=== PATIENT | female | born 1940 | race Caucasian/White ===

== ENCOUNTER 2025-01-14 12:30 | Outpatient (REF) | payer MEDICARE, SELFPAY ==
--- OUTSIDE RECORDS SUMMARY | 2025-01-14 15:25 | XMS_ITS | Encounter Summary ---
Author Organization [facility] Address [address] [place] [address] Care Team Providers Care Deputy Administrator Name Role Phone Bere Delarosa MD Primary Care Provider [phone] Encounter Details Date Type Department Care Team ([facility] st Contact Info) Description 12/28/2024 Telephone Internal Medicine - [address] [place] [address] Fartun Vitale MA Social History Tobacco Use Types Packs/Day Years Used Date Smoking Tobacco: Former Cigarettes Q uit: 09/19/2006 Smokeless Tobacco: Never Interpersonal Safety Answer Date Record ed Physical Abuse 09/22/2024 Verbal Abuse 09/22/2024 Comments Unknown Sex and Gender Information Value Date Recorded Sex Assigned at Not on file Legal Sex Female 9:29 PM EST Gender Identity Not on file Sexual Orientation Not on file documented as of this encounter Progress Notes * Maryuri West RN - 01/09/2025 10:33 AM EDT Pt cb to scheduled TCM [facility] dc 01/05 for cellulitis and encephalopathy Needs referral for [facility] wound clinic TCM scheduled documented in this encounter Plan of Treatment Upcoming Encounters Date Type Department Care Team (Late st Contact Info) Description 01/17/2025 10:00 AM EDT Office Visit Internal Medicine - [place] [address] [phone] Bere Delarosa MD [address] [phone] 01/21/2025 8:15 AM EDT Office Visit Pulmonolgy - [place] [address] [phone] Ana Covington MD [address] [address] 02/01/2025 12:45 PM EDT Clinical Support [facility] [address] [place] [phone] documented as of this encounter Visit Diagnoses Not on filedocumented in this encounter Additional Health Concerns Infection Onset Date Last Indicated Resolved Time 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 Diff Rule-Out Infection 01/05/2025 01/05/2025 0 01/05/2025 7:55 AM EDT documented as of this encounter Care Teams Deputy Administrator Relationship Specialty Start Date End Date Bere Delarosa MD [address] [phone] PCP - General Internal Medicine 04/03/21 documented as of this encounter
--- OUTSIDE RECORDS SUMMARY | 2025-01-14 15:25 | XMS_ITS | Encounter Summary ---
Author Organization [facility] Address [address] [place] [address] Care Team Providers Care Security Assessor Name Role Phone Bere Delarosa MD Primary Care Provider [phone] Encounter Details Date Type Department Care Team ([facility] st Contact Info) Description 10/26/2024 Telephone [facility] [place] [address] [phone] Ana Covington MD [address] [id number] Social History Tobacco Use Types Packs/Day Years [...] as of this encounter Progress Notes * Radha De León MA - 10/26/2024 2:[address] hillary Jade patient scheduled 11/16/24 for this to be discussed as she canceled her 10/15 appt and needed afternoon appt due to transportation * Valorie French - 10/26/2024 12:18 PM EST Patient called stating that provider was to send in a BIPAP for patient. Patient was in Rehab for about a month and the provider from rehab spoke to Pulmo provider about patient needing a BIPAP. patient will like to know if this is getting send in today since it was to be send yesterday. Please advice documented in this encounter Plan of Treatment Upcoming Encounters Date Type Department Care Team (Late st Contact Info) Description 01/17/2025 10:00 AM EDT Office Visit Internal Medicine - [place] [address] [phone] Bere Delarosa MD [address] [place] [phone] 01/21/2025 8:15 AM EDT Office Visit Pulmonolgy - [place] [address] [phone] Ana Covington MD [address] [address] 02/01/2025 12:45 PM EDT Clinical Support [facility] [address] [place] [phone] documented as of this encounter Visit Diagnoses Not on filedocumented in this encounter Additional Health Concerns Infection Onset Date Last Indicated Resolved Time 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 Diff Rule-Out Infection 01/05/2025 01/05/2025 0 01/05/2025 7:55 AM EDT documented as of this encounter Care Teams Security Assessor Relationship Specialty Start Date End Date Bere Delarosa MD [address] [phone] PCP - General Internal Medicine 04/03/21 documented as of this encounter
--- OUTSIDE RECORDS SUMMARY | 2025-01-14 15:26 | XMS_ITS | Encounter Summary ---
Author Organization [facility] Address [address] [place] [address] Care Team Providers Care Tourist Escort Name Role Phone Bere Delarosa MD Primary Care Provider Reason for Visit * Reason Onset Date Comments faxed order 01/10/2025 [facility] Encounter Details Date Type Department Care Team (Late st Contact Info) Description 01/10/2025 Telephone Internal Medicine - [place] 175 [facility] [address] [place] [address] Mary Christopher MA faxed order ([facility]) Social History Tobacco Use Types Packs/Day Years [...] as of this encounter Progress Notes * Mary Christopher MA - 01/14/2025 2:49 PM EDT Faxed [phone] * Mary Christopher MA - 01/10/2025 1:48 PM EDT [employer] [facility] [employer]. Written order for wound care [id number] Placed in providers folder for signature. documented in this encounter Plan of Treatment Upcoming Encounters Date Type Department Care Team (Late st Contact Info) Description 01/17/2025 10:00 AM EDT Office Visit Internal Medicine [facility] [address] [phone] Bere Delarosa MD [address] [phone] 01/21/2025 8:15 AM EDT Office Visit Pulmonolgy - [place] [address] [phone] Ana Covington MD [address] [phone] 02/01/2025 12:45 PM EDT Clinical Support [facility] [address] [place] [phone] documented as of this encounter Visit Diagnoses Not on filedocumented in this encounter Additional Health Concerns Infection Onset Date Last Indicated Resolved Time 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
--- OUTSIDE RECORDS SUMMARY | 2025-01-14 15:26 | XMS_ITS | Encounter Summary ---
Author Organization [facility] Address [address] [place] [address] Care Team Providers Care Barkeeper Name Role Phone eBre Delarosa MD Primary Care Provider [phone] Reason for Visit * Reason Onset Date Comments Request For Order(s) 01/11/2025 [facility] Orders Discharge Summary Encounter Details Date Type Department Care Team (Late st Contact Info) Description 01/11/2025 Telephone Internal Medicine - [place] 175 [facility] [address] [place] [address] Fartun Vitale MA Request For Order(s) ([facility] Orders Discharge Summary/) Social History Tobacco Use Types Packs/Day Years [...] as of this encounter Progress Notes * Fartun Vitale MA - 01/14/2025 10:29 AM EDT Scanned into chart and faxed to [facility] [id number] * Fartun Vitale MA - 01/11/2025 7:05 AM EDT [facility] Orders Discharge Summary Please sign & documented in this encounter Plan of Treatment Upcoming Encounters Date Type Department Care Team (Late st Contact Info) Description 01/17/2025 10:00 AM EDT Office Visit Internal Medicine - [place] [address] [phone] Bere Delarosa MD [address] [phone] 01/21/2025 8:15 AM EDT Office Visit Pulmonolgy - [place] [address] [phone] Ana Covington MD [address] [address] 02/01/2025 12:45 PM EDT Clinical Support [facility] [address] [place] [phone] documented as of this encounter Visit Diagnoses Not on filedocumented in this encounter Additional Health Concerns Infection Onset Date Last Indicated Resolved Time 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
--- OUTSIDE RECORDS SUMMARY | 2025-01-14 15:26 | XMS_ITS ---
Author Name [facility] Organization Unknown Care Team Organization Name Specialty Phone Email Start Date End [facility] te [facility] KEANU LOPEZ Primary Care 08/19/2022 4
--- OUTSIDE RECORDS SUMMARY | 2025-01-14 15:27 | XMS_ITS | Clinical Summary ---
Author Organization 175 [facility] Address [address] [place] [address] Phone Care Team Providers Care Analysis Consultant Name Role Phone Bere Delarosa MD Primary Care Provider [phone] Allergies Active Allergy Reactions Criticality Noted Date Comments Apixaban Hives 06/18/2022 Other Reaction(s): Rash on face and chest, puritic, severe bleeding Cefazolin 09/17/2024 Cephalexin Hives 12/04/2018 Tolerates ceftriaxone 02/2024 Gabapentin 04/03/2021 Silver Sulfadiazine 09/17/2024 Medications aspirin 81 mg EC tablet Take 1 tablet (81 mg total) by mouth 1 (one) time each day. Active carvediloL (COREG) 6.25 mg tablet Take 2 tablets (12.5 mg total) by mouth. 018 Active ferrous sulfate (FeroSuL) 325 mg (65 mg elemental iron) tablet Take 1 tablet (325 mg total) by mouth 1 (one) time each day. 30 tablet 1 025 Active potassium chloride (KLOR-CON M10) 10 mEq CR tablet TAKE 1 TABLET BY MOUTH DAILY 90 tablet 1 Active allopurinoL (ZYLOPRIM) 100 mg tablet TAKE 1 TABLET BY MOUTH DAILY 90 tablet 1 Active cyanocobalami n (Vitamin B-12) 1,000 mcg tablet Take 1 tablet (1,000 mcg total) by mouth 1 (one) time each day. Active docusate sodium (Colace) 100 mg capsule Take 1 capsule (100 mg total) by mouth 2 (two) times a day. Active empagliflozin (Jardiance) 10 mg tablet Take 1 tablet (10 mg total) by mouth 1 (one) time each day in the morning. Active folic acid (FOLVITE) 1 mg tablet Take 2 tablets (2 mg total) by mouth 1 (one) time each day. Active loratadine (CLARITIN) 10 mg tablet Take 1 tablet (10 mg total) by mouth 1 (one) time each day. Active torsemide (DEMADEX) 20 mg tablet Take 1 tablet (20 mg total) by mouth 2 (two) times a day. Active fluticasone propionate (FLONASE) 50 mcg/actuation nasal spray Administer 2 sprays into each nostril 1 (one) time each day. Active pregabalin (LYRICA) 100 mg capsule Take 1 capsule (100 mg total) by mouth 2 (two) times a day. Max Daily Amount: 200 mg Active DULoxetine (CYMBALTA) [address] capsule Take 1 capsule (60 mg total) by mouth 1 (one) time each day. Active levothyroxine (SYNTHROID, LEVOTHROID) 25 mcg tablet Take 2 tablets (50 mcg total) by mouth 1 (one) time each day before breakfast. 025 2024 Active acetaminophen (TYLENOL) 500 mg tablet Take 2 tablets (1,000 mg total) by mouth 3 (three) times a day for 10 days. 30 tablet 025 2024 Active polyethylene glycol (MIRALAX) 17 gram packet Take 17 g by mouth 1 (one) time each day if needed for constipation for up to 10 days. 170 g 025 2024 Active spironolacton e (ALDACTONE) 25 mg tablet Take 1 tablet (25 mg total) by mouth 1 (one) time each day. 30 each 025 2024 Active ferrous sulfate 325 mg (65 mg iron) EC tablet Take 1 tablet (325 mg total) by mouth 1 (one) time each day with breakfast. Do not crush, chew, or split. 30 each 025 2024 Active allopurinoL (ZYLOPRIM) 100 mg tablet Take 1 tablet (100 mg total) by mouth 1 (one) time each day. 018 2024 Discontinued fluticasone propionate (FLONASE) 50 mcg/actuation nasal spray Administer 2 sprays into each nostril 1 (one) time each day. SHAKE LIQUID AND USE 022 2024 Discontinued(S top Taking at Discharge) furosemide (LASIX) 40 mg tablet Take 1 tablet (40 mg total) by mouth 2 (two) times a day. 023 2024 Discontinued(S top Taking at Discharge) hydrocortison e 1 % topical cream Apply topically 2 (two) times a day. 020 2024 Discontinued(S top Taking at Discharge) ketoconazole (NIZORAL) 2 % cream Apply topically 2 (two) times a day. 024 2024 Discontinued(S top Taking at Discharge) tacrolimus (PROTOPIC) 0.03 % ointment Apply topically 2 (two) times a day. 2024 Discontinued(S top Taking at Discharge) mupirocin (BACTROBAN) 2 % ointment Apply topically 2 (two) times a day. 2024 Discontinued(S top Taking at Discharge) levothyroxine (SYNTHROID, LEVOTHROID) 25 mcg tablet Take 1 tablet (25 mcg total) by mouth 1 (one) time each day. 30 tablet 3 024 2024 Discontinued clonazePAM (KlonoPIN) 0.5 mg tablet Take 1 tablet (0.5 mg total) by mouth 2 (two) times a day if needed for anxiety. Max Daily Amount: 1 mg 56 tablet 2 024 2024 Discontinued(S top Taking at Discharge) DULoxetine (CYMBALTA) [address] capsule TAKE 1 CAPSULE BY MOUTH DAILY 30 capsule 1 024 2024 Discontinued(S top Taking at Discharge) ammonium lactate (AMLACTIN) 12 % cream Apply 1 Application topically 2 (two) times a day. 385 g 1 024 2024 Discontinued(S top Taking at Discharge) pregabalin (LYRICA) 75 mg capsule Take 1 capsule (75 mg total) by mouth 2 (two) times a day. Max Daily Amount: 150 mg 60 capsule 1 024 2024 Discontinued(S top Taking at Discharge) traMADoL (ULTRAM) 50 mg tablet Take 1 tablet (50 mg total) by mouth every 4 (four) hours. Max Daily Amount: 300 mg 2024 Discontinued(S top Taking at Discharge) potassium chloride (MICRO-K) 10 mEq CR capsule Take 1 capsule (10 mEq total) by mouth 1 (one) time each day. 2024 Discontinued(S top Taking at Discharge) doxycycline (VIBRAMYCIN) 100 mg capsule Take 1 capsule (100 mg total) by mouth 2 (two) times a day for 5 days. Take with at least 8 ounces (large glass) of water, do not lie down for 30 minutes after. Administer 2 hours before or after multivitamins, antacids, or other products containing polyvalent cations (i.e., calcium, iron, magnesium, selenium, zinc). 10 each 025 2024 cefpodoxime (VANTIN) 200 mg tablet Take 1 tablet (200 mg total) by mouth 2 (two) times a day for 5 days. Pt tolerates 3rd generation cephalosporins (on ceftriaxone in hospital) 10 each 025 2024 Active Problems Problem Noted Date Diagnosed Date Acute metabolic encephalopathy 01/01/2025 Acute on chronic hypoxic res piratory failure (CMS/HCC V24, CMS/HCC V28) 09/16/2024 Acute respiratory failure wi th hypoxia (CMS/HCC V24, CMS/HCC V28) 08/29/2024 Personal history of pulmonary embolism Acute on chronic systolic (c ongestive) heart failure ([facility] V24, [facility] V28) 08/29/2024 middle or intermediate school principal (current) use of anticoagulants 2023 Chronic obstructive pulmonar y disease, unspecified ([facility] V24, [facility] V28) 08/29/2024 Urinary tract infection, site not specified 08/19 Chronic midline low back pain without sciatica 0 12/09/2022 Arthritis of knee 08/04/2022 COVID 10/08/2021 Anxiety 09/28/2021 CHF (congestive heart failure) ([facility], [facility]) 09/28/2021 Chronic gout of left elbow 09/28/2021 HTN (hypertension) 09/28/2021 Hypothyroidism 09/28/2021 PAD (peripheral artery disease) ([facility] V24) Encounters Date Type Department Care Team Description 01/11/2025 Telephone Internal Medicine [facility] [address] [phone] Fartun Vitale MA Request For Order(s) ([facility] Orders Discharge Summary/) 01/10/2025 Telephone Internal Medicine [facility] [address] [phone] Mary Christopher MA faxed order ([facility]) 01/07/2025 Telephone Internal Medicine [facility] [address] [phone] Bere Delarosa MD 12/31/2024 9:12 PM EDT - 01/05/2025 2:15 PM EDT Hospital Encounter [facility] [address] [place] [phone] Leonela Chowdhury MD Jones, Christopher, MD Kokosadze, Estate, MD Japaridze, Anna, MD Generalized weakness (Primary Dx); Urinary tract infection without hematuria, site unspecified; Chronic venous stasis dermatitis of both lower extremities; Acute on chronic respiratory failure with hypoxia and hypercapnia ([facility] V24, [facility] V28); Anemia, unspecified type; Venous stasis ulcer of left lower extremity ([facility] V24, [facility] V28); PAD (peripheral artery disease) ([facility] V24); Acute metabolic encephalopathy; Chronic combined systolic and diastolic congestive heart failure ([facility] V24, [facility] V28); Acute on chronic hypoxic respiratory failure ([facility] V24, [facility] V28); Acute cystitis without hematuria; Iron deficiency anemia due to chronic blood loss Discharge Disposition: Home-Health Care [facility] 12/28/2024 Telephone Internal Medicine [address] [phone] Fartun Vitale [place] 12/24/2024 Telephone Internal Medicine [address] [phone] Fartun Vitale [place] Request For Order(s) (Beto SINGH Missed Visit 12/11/24) 12/20/2024 Telephone Internal Medicine [address] [phone] Fartun Vitale [place] Request For Order(s) ([facility] Orders 12/07/24) 12/17/2024 [facility] [address] [phone] Fartun Vitale [place] Request For Order(s) ([facility] Orders 11/26/24) 12/11/2024 Telephone Internal Medicine [address] [phone] Mary Christopher MA faxed order ([facility] ) 12/10/2024 Telephone Internal Medicine [address] [phone] Fartun Vitale MA Request For Order(s) ([facility] Orders 10/27/24) 12/07/2024 Telephone Internal Medicine [address] [phone] Bere Delarosa MD 12/07/2024 Telephone Internal Medicine [facility] [address] [phone] Fartun Vitale [place] Request For Order(s) ([facility] Orders 11/20/2024/) 12/03/2024 Telephone Internal Medicine [facility] [address] [phone] Fartun Vitale MA Request For Order(s) ([facility] Missed Visit 10/29/24) 11/30/2024 Telephone Internal Medicine [facility] [address] [phone] Mary Christopher MA faxed order ([facility]) 11/30/2024 [facility] Internal [address] [phone] Fartun Vitale [place] Request For Order(s) ([facility] Orders 11/02/24/) 11/27/2024 Telephone Internal Medicine [facility] [address] [phone] Fartun Vitale MA Request For Order(s) ([facility] Missed Visit 11/09/24) 11/26/2024 Telephone Internal [address] [phone] Fartun Vitale MA Request For Order(s) ([facility] Orders 11/13/24) 11/22/2024 Telephone Internal Medicine [facility] [address] [phone] Bere Delarosa MD Referral to wound clinic 11/22/2024 [facility] [address] [phone] Fartun Vitale MA Request For Order(s) ([facility] Missed Visit 10/27/24) 11/16/2024 Telephone Internal Medicine [facility] [address] [phone] Bere Delarosa MD 11/14/2024 Telephone Internal [facility] [address] [phone] Fartun Vitale MA Request For Order(s) (Beto VNA Cert 10/25/24-12/23/24 Plan Of Care /) 11/13/2024 Telephone Internal [facility] [address] [phone] Fartun Vitale [place] Request For Order(s) ([facility]UST[facility] Orders 11/08/24) 11/13/2024 [facility] [address] [phone] Bere Delarosa MD VNA 11/13/2024 [facility] [address] [phone] Bere Delarosa MD Med Refill 11/08/2024 [facility] [address] [phone] Bere Delarosa MD Appointment Cancelled 11/06/2024 [facility] [address] [phone] Fartun Vitale [place] Request For Order(s) ([facility] Orders 10/31/24/) 10/30/2024 [facility] [address] [phone] Bere Delarosa MD medication (Med list review ) 10/26/[address] [phone] Ana Covington MD 10/22/2024 [facility] [address] [phone] Bere Delarosa MD Hospital Follow-up from Last 3 Months Surgical History Surgery Date Site/Laterality Comments OTHER SURGICAL HISTORY 03/05/2021 PROCEDURE: LA IN-SITU VEIN BYPASS FEMORAL-POPLITEAL TOTAL HIP ARTHROPLASTY Left with revision Medical History Medical History Date Comments HTN (hypertension) DX:HTN (hyper tension) CHF (congestive heart failur e) ([facility] V24, [facility] V28) DX:CHF (congestive heart david lure) ([facility]) Hypothyroidism DX:Hypothyroidis m Hyperlipidemia COPD (chronic obstructive pu lmonary disease) ([facility] V24, [facility] V28) Urinary incontinence Anxiety Family History Medical History Relation Name Comments Heart attack Father passed Diabetes Mother Liver cancer Sister Relation Name Status Comments Daughter Alive Father Mother Sister Social History Tobacco Use Types Packs/Day Years Used Date Smoking Tobacco: Former Cigarettes Q uit: 09/19/2006 Smokeless Tobacco: Never Interpersonal Safety Answer Date Record ed Physical Abuse 09/22/2024 Verbal Abuse 09/22/2024 Comments Unknown Sex and Gender Information Value Date Recorded Sex Assigned at Not on file Legal Sex Female 9:29 PM EST Gender Identity Not on file Sexual Orientation Not on file Obstetrics History Last Filed Vital Signs Vital Sign Reading Time Taken Comments Blood Pressure 138/44 01/05/2025 8:01 AM EDT Pulse 78 01/05/2025 8:01 AM EDT Temperature 36.6 ??C (97.8 ??F) 01/05/2025 8:01 AM ED T Respiratory Rate 17 01/05/2025 8:01 AM EDT Oxygen Saturation 100% 01/05/2025 8:01 AM EDT Inhaled Oxygen Concentration - - Weight 109 kg (240 lb) 12/31/2024 9:49 PM EDT Height 162.6 cm (5' 4.02 ) 12/31/2024 9:49 PM ED T Body Mass Index 41.18 12/31/2024 9:49 PM EDT Plan of Treatment Upcoming Encounters Date Type Department Care Team (Late st Contact Info) Description 01/17/2025 10:00 AM EDT Office Visit Internal Medicine - [place] 175 [facility] [address] [place] [phone] Bere Delarosa MD 175 [facility] [address] [place] [phone] 01/21/2025 8:15 AM EDT Office Visit Pulmonolgy - [place] 175 [facility] [address] [place] [phone] Ana Covington MD 175 [facility] [address] [place] [address] 02/01/2025 12:45 PM EDT Clinical Support [facility] [address] [place] [address] Health Maintenance Due Date Last Done Comments DTaP,Tdap,and Td Vaccines (1 - Tdap) 1959 Zoster Vaccines (1 of 2) 1989 Pneumococcal Vaccine: 50+ Years (2 of 2 - PCV) 06/15/2008 06/15/2007 RSV Immunization Adult Patients (1 - 1-dose 75+ series) 2014 COVID-19 Vaccine (3 - Moderna risk series) 06/09/2021 05/12/2021, 04/14/2021 Cholesterol Screening (Lipid Panel) 08/26/2022 Depression Screening 08/26/2022 Medicare Annual Wellness Visit 08/26/2022 Osteoporosis Screening (Bone Density Screening) 08/26/2022 Social Influencers of Health Screening 08/26/2022 Influenza Vaccine (Season Ended) 2025 07/29/2009, 07/05/2008 Falls Risk Assessment 01/05/2026 01/05/2025 Hypertension/CHF/CAD Annual BMP Blood Test 01/05/2026 01/05/2025, 01/04/2025, 01/03/2025, Additional history exists HIB Vaccines Aged Out No longer eligi ble based on patient's age to complete this topic HPV Vaccines Aged Out No longer eligi ble based on patient's age to complete this topic Hepatitis A Vaccines Aged Out No long er eligible based on patient's age to complete this topic Hepatitis B Vaccines Aged Out No long er eligible based on patient's age to complete this topic IPV Vaccines Aged Out No longer eligi ble based on patient's age to complete this topic MMR Vaccines Aged Out No longer eligi ble based on patient's age to complete this topic Meningococcal ACWY Vaccine Aged Out N o longer eligible based on patient's age to complete this topic Meningococcal B Vaccine Aged Out No l onger eligible based on patient's age to complete this topic RSV Immunization Patients Under 20 months Aged Out No longer eligible based on patient's age to complete this topic Varicella Vaccines Aged Out No longer eligible based on patient's age to complete this topic Medical Devices Implanted Type Area Printed Circuit Photographer Device Identifier Shelf Expiration Date Model / Serial / Lot Shell G7 G Offset Hemisphere 58mm Multihole Osseoti - [id number] Implanted:Qty: 1 on 07/24/2020 Left: Hip [employer] [id number] 02/25/2030 [id number] / / [id number] Screw Trilogy 25mm 6.5mm Self Tap Tivanium Bone Cortex Hip - [id number] Implanted:Qty: 1 on 07/24/2020 Left: Hip [employer] 03/25/2030 [id number] / / [id number] Screw Trilogy 40mm 6.5mm Self Tap Tivanium Bone Cortex Hip - [id number] Implanted:Qty: 1 on 07/24/2020 Left: Hip [employer] 04/29/2030 [id number] / / [id number] Plug Artisan Medium 25mm Plug Bone Cement - [id number] Implanted:Qty: 1 on 07/24/2020 Left: Hip [employer] [id number] 06/09/2025 6215-5-011 / / [id number] Liner G7 Moulton G 36mm Constrain E1 Acetabular Hip - [id number] Implanted:Qty: 1 on 07/24/2020 Left: Hip [employer] 05/16/2024 [id number] / / [id number] Head Moulton -3mm 36mm Modular Femoral Hip - [id number] Implanted:Qty: 1 on 07/24/2020 Left: Hip [employer] [id number] 07/09/2029 [id number] / / [id number] Bone Void Filler Stimulan 10cc Rapid Cure - [id number] Implanted:Qty: 1 on 07/24/2020 Left: Hip [employer] [id number] 04/18/2023 620-010 / / [id number] Cement Simplex P Radiopaque Full Dose Bone 10 Pack - [id number] Implanted:Qty: 1 on 07/24/2020 Left: Hip [employer] [id number] 02/16/2022 6191-1-010 / / Cement Simplex P Radiopaque Full Dose Bone 10 Pack - [id number] Implanted:Qty: 1 on 07/24/2020 Left: Hip [employer] [id number] 02/16/2022 6191-1-010 / / Component Leonardo 7cm Femoral Left Proximal - [id number] Implanted:Qty: 1 on 07/24/2020 Left: Hip [employer] [id number] 02/16/2029 273898 / / [id number] Stem Oss 150mm 11mm Bowed Collared Femoral Intramedullary - [id number] Implanted:Qty: 1 on 07/24/2020 Left: Hip [employer] [id number] 08/30/2029 939882 / / [id number] Component Oss Diaphyseal Stacking Adapter - [id number] Implanted:Qty: 1 on 07/24/2020 Left: Hip [employer] [id number] 09/07/2027 718481 / / [id number] Component Oss Diaphyseal 3 Cm W\Screws - [id number] Implanted:Qty: 1 on 07/24/2020 Left: Hip [employer] [id number] 11/07/2028 729961 / / [id number] Component Oss Diaphyseal 3cm W\Screws - [id number] Implanted:Qty: 1 on 07/24/2020 Left: Hip [employer] [id number] 10/20/2027 346037 / / [id number] Procedures Procedure Name Priority Date/Time Associated Diagnosis Comments CBC WITH AUTO DIFFERENTIAL Routine 01/05/2025 6:27 AM EDT MAGNESIUM Timed 01/05/2025 6:27 AM EDT CBC AND DIFFERENTIAL Routine 01/05/2025 6:27 AM EDT BASIC METABOLIC PANEL Routine 01/05/2025 6:27 AM EDT OCCULT BLOOD STOOL, GUAIAC STAT 01/05/2025 6:24 AM EDT VANCOMYCIN, TROUGH Timed 01/04/2025 12 :42 PM EDT FERRITIN Add-On 01/04/2025 6:10 AM EDT CBC WITH AUTO DIFFERENTIAL Routine 01/04/2025 6:10 AM EDT MAGNESIUM Timed 01/04/2025 6:10 AM EDT CBC AND DIFFERENTIAL Routine 01/04/2025 6:10 AM EDT BASIC METABOLIC PANEL Routine 01/04/2025 6:10 AM EDT VAS US DUPLEX LOWER EXT ART LEFT W DOPPLER Routine 01/03/2025 3:19 PM EDT PAD (peripheral artery disease) (CMS/HCC V24) CBC WITH AUTO DIFFERENTIAL STAT 01/03/2025 7:27 AM EDT CBC AND DIFFERENTIAL STAT 01/03/2025 7:27 AM EDT MAGNESIUM STAT 01/03/2025 7:27 AM EDT BASIC METABOLIC PANEL STAT 01/03/2025 7:27 AM EDT VAS US DUPLEX LOWER EXT ART RIGHT W DOPPLER Routine 01/02/2025 7:44 PM EDT PAD (peripheral artery disease) (CMS/HCC V24) MRSA PCR Routine 01/02/2025 6:44 PM EDT POCT GLUCOSE BLOOD Routine 01/02/2025 3: 49 PM EDT CBC WITH AUTO DIFFERENTIAL STAT 01/02/2025 7:27 AM EDT CBC AND DIFFERENTIAL STAT 01/02/2025 7:27 AM EDT MAGNESIUM STAT 01/02/2025 7:27 AM EDT BASIC METABOLIC PANEL STAT 01/02/2025 7:[address] HEAD WO CONTRAST STAT 01/01/2025 1 1:01 AM EDT HEMOGLOBIN A1C Add-On 01/01/2025 8:47 AM EDT CBC WITH AUTO DIFFERENTIAL Routine 01/01/2025 8:47 AM EDT MAGNESIUM Routine 01/01/2025 8:47 AM EDT CBC AND DIFFERENTIAL Routine 01/01/2025 8:47 AM EDT BASIC METABOLIC PANEL Routine 01/01/2025 8:47 AM EDT INGRAM URINE CULTURE TUBE STAT 01/01/2025 2:19 AM EDT URINALYSIS WITH REFLEX MICROSCOPIC AND CULTURE STAT 01/01/2025 2:19 AM EDT URINALYSIS WITH REFLEX MICROSCOPIC AND CULTURE STAT 01/01/2025 2:19 AM EDT CULTURE URINE STAT 01/01/2025 2:19 AM EDT B-TYPE NATRIURETIC PEPTIDE STAT 01/01/2025 2:17 AM EDT TROPONIN I HIGH SENSITIVITY STAT 01/01/2025 2:17 AM EDT ARTERIAL BLOOD GAS STAT 01/01/2025 2: 03 AM EDT VENOUS BLOOD GAS STAT 01/01/2025 1:22 AM EDT ECG ANNOTATED 01/01/2025 XR CHEST 1 VIEW STAT 12/31/2024 10:52 PM EDT RETICULOCYTE COUNT Add-On 12/31/2024 10 :14 PM EDT VITAMIN B12 AND FOLATE Add-On 10:14 PM EDT IRON AND TIBC Add-On 12/31/2024 10:14 PM EDT CBC WITH AUTO DIFFERENTIAL STAT 12/31/2024 10:14 PM EDT AMMONIA STAT 12/31/2024 10:14 PM EDT COMPREHENSIVE METABOLIC PANEL STAT 12/31/2024 10:14 PM EDT CBC AND DIFFERENTIAL STAT 12/31/2024 10:14 PM EDT ECG 12-LEAD STAT 12/31/2024 9:54 PM EDT POCT GLUCOSE BLOOD Routine 12/31/2024 9: 39 PM EDT from Last 3 Months Results * (ABNORMAL) CBC auto differential (01/05/2025 6:27 AM EDT) Only the most recent of6 resultswithin the time period is included. [facility] WBC 10.0 4.8 - 10.8 K/mcL LAB HEMETOLOGY METHOD 01/05/2025 7:17 AM EDT [facility] LAB RBC 2.90(L) 3.80 - 4.80 M/mcL LAB HEMETOLOGY METHOD 01/05/2025 7:17 AM EDT [facility] Hemoglobin 8.3(L) 11.5 - 16.0 g/dL LAB HEMETOLOGY METHOD 01/05/2025 7:17 AM EDT [facility] LAB Hematocrit 27.7(L) 35.0 - 47.0 % LAB HEMETOLOGY METHOD 01/05/2025 7:17 AM EDT [facility] MCV 96.9 79.0 - 98.0 FL LAB HEMETOLOGY METHOD 01/05/2025 7:17 AM [facility] MCH 29.0 27.0 - 32.0 pcg LAB HEMETOLOGY METHOD 01/05/2025 7:17 AM [facility] MCHC 30.0(L) 32.0 - 37.0 g/dL LAB HEMETOLOGY METHOD 01/05/2025 7:17 AM [facility] RDW 14.7 11.0 - 15.0 % LAB HEMETOLOGY METHOD 01/05/2025 7:17 AM [facility] Platelets 286 130 - 400 K/mcL LAB HEMETOLOGY METHOD 01/05/2025 7:17 AM [facility] MPV 10.0 7.0 - 11.0 FL LAB HEMETOLOGY METHOD 01/05/2025 7:17 AM [facility] NRBC 0.0 <1.0 % LAB HEMETOLOGY METHOD 01/05/2025 7:17 AM [facility] NRBC Absolute 0.00 <0.10 K/mcL LAB HEMETOLOGY METHOD 01/05/2025 7:17 AM [facility] Neutrophils Relative 73.1 % LAB HEMETOLOGY METHOD 01/05/2025 7:17 AM [facility] Lymphocytes Relative 11.2 % LAB HEMETOLOGY METHOD 01/05/2025 7:17 AM [facility] Monocytes Relative 7.5 % LAB HEMETOLOGY METHOD 01/05/2025 7:17 AM [facility] Eosinophils Relative 7.4 % LAB HEMETOLOGY METHOD 01/05/2025 7:17 AM [facility] Basophils Relative 0.4 % LAB HEMETOLOGY METHOD 01/05/2025 7:17 AM EDT [facility] Immature Granulocytes Relative 0.4 % LAB HEMETOLOGY METHOD 01/05/2025 7:17 AM EDT [facility] Neutrophils Absolute 7.29(H) 1.50 - 7.00 K/mcL LAB HEMETOLOGY METHOD 01/05/2025 7:17 AM EDT [facility] Lymphocytes Absolute 1.12 1.00 - 5.00 K/mcL LAB HEMETOLOGY METHOD 01/05/2025 7:17 AM EDT [facility] Monocytes Absolute 0.75 0.20 - 1.00 K/mcL LAB HEMETOLOGY METHOD 01/05/2025 7:17 AM EDT [facility] Eosinophils Absolute 0.74(H) 0.00 - 0.50 K/mcL LAB HEMETOLOGY METHOD 01/05/2025 7:17 AM EDT [facility] Basophils Absolute 0.04 0.00 - 0.20 K/mcL LAB HEMETOLOGY METHOD 01/05/2025 7:17 AM EDT [facility] Immature Granulocytes Absolute 0.04(H) 0.00 - 0.03 K/mcL LAB HEMETOLOGY METHOD 01/05/2025 7:17 AM EDT [facility] Blood Venous blood specimen / Unknown Venipuncture / Unknown 01/05/2025 6:27 AM EDT 01/05/2025 6:57 AM EDT Mary LUTZ LAB BLOOD ORDERABLES Final Result [facility]) [facility] [address] [place] [address], * Magnesium (01/05/2025 6:27 AM EDT) Only the most recent of5 resultswithin the time period is included. Magnesium 2.0 1.9 - 2.6 mg/dL LAB CHEMISTRY METHOD 01/05/2025 7:48 AM [facility] Blood Venous blood specimen / Unknown Venipuncture / Unknown 01/05/2025 6:27 AM EDT 01/05/2025 6:56 AM EDT Mary LUTZ LAB BLOOD ORDERABLES Final Result [facility] [address] [place] [address], * (ABNORMAL) Basic metabolic panel (01/05/2025 6:27 AM EDT) Only the most recent of5 resultswithin the time period is included. Sodium 136 133 - 145 mmol/L LAB CHEMISTRY METHOD 01/05/2025 7:48 AM [facility] Potassium 3.3(L) 3.5 - 5.5 mmol/L LAB CHEMISTRY METHOD 01/05/2025 7:48 AM [facility] Chloride 98 96 - 110 mmol/L LAB CHEMISTRY METHOD 01/05/2025 7:48 AM [facility] CO2 32 21 - 32 mmol/L LAB CHEMISTRY METHOD 01/05/2025 7:48 AM [facility] Anion Gap 6 3 - 11 LAB CHEMISTRY METHOD 01/05/2025 7:48 AM [facility] Glucose 89 70 - 100 mg/dL LAB CHEMISTRY METHOD 01/05/2025 7:48 AM [facility] BUN 10 5 - 25 mg/dL LAB CHEMISTRY METHOD 01/05/2025 7:48 AM [facility] Creatinine 0.69 0.50 - 1.10 mg/dL LAB CHEMISTRY METHOD 01/05/2025 7:48 AM [facility] eGFR 85 >=60 mL/min/1. 73m2 LAB CHEMISTRY METHOD 01/05/2025 7:48 AM EDT [facility] Comment:Calculation based on the??Chronic Kidney Disease Epidemiology Collaboration (CKD-EPI) equation refit??without adjustment for race. BUN/Creatinine Ratio 14.5 LAB CHEMISTRY METHOD 01/05/2025 7:48 AM EDT [facility] Calcium 8.6 8.5 - 10.5 mg/dL LAB CHEMISTRY METHOD 01/05/2025 7:48 AM EDT [facility] Blood Venous blood specimen / Unknown Venipuncture / Unknown 01/05/2025 6:27 AM EDT 01/05/2025 6:56 AM EDT Mary LUTZ LAB BLOOD ORDERABLES Final Result Performing Organization Address [facility]/ZIP Co de Phone Number [facility] [address] [place] [address], [place] [phone] * (ABNORMAL) Occult blood stool, guaiac (01/05/2025 6:24 AM EDT) Occult Blood, Stool #1 Positive( A) Negative 01/05/2025 9:31 AM EDT [facility] Stool Rectum structure / Unknown Non-blood Collection / Unknown 01/05/2025 6:24 AM EDT 01/05/2025 7:50 AM EDT Mitzi Pace MD LAB BODY FLUIDS AND STOOLS ORD ERABLES Final Result Performing Organization Address [facility]/ZIP Co de Phone Number [facility] [address] [place] [address], [place] [phone] * Vancomycin, trough Please draw after 12N but before the 1300 dose is hung (01/04/2025 12:42 PM EDT) Vancomycin Trough 19.0 10.0 - 20.0 mcg/mL LAB CHEMISTRY METHOD 01/04/2025 1:16 PM EDT [facility] Blood Venous blood specimen / Unknown Venipuncture / Unknown 01/04/2025 12:42 PM EDT 01/04/2025 12:48 PM EDT Mary LUTZ LAB BLOOD ORDERABLES Final Result Performing Organization Address [facility]/ZIP Co de Phone Number [facility] [address] [place] [address], [place] [phone] * Ferritin (01/04/2025 6:10 AM EDT) Ferritin 104 8 - 252 ng/mL LAB CHEMISTRY METHOD 01/04/2025 12:42 PM EDT [facility] Blood Venous blood specimen / Unknown Venipuncture / Unknown 01/04/2025 6:10 AM EDT 01/04/2025 6:41 AM EDT Mary LUTZ LAB BLOOD ORDERABLES Final Result Performing Organization Address [facility] de Phone Number [facility] [address] [place] [address], [place] [phone] * Vascular US duplex lower extremity arteries left with Doppler (01/03/2025 3:19 PM EDT) Anatomical Region Laterality Modality Vascular, Abdomen Ultrasound 01/03/2025 4:12 PM EDT Impressions 01/03/2025 4:18 PM EDT Left leg: Persistent elevated velocity within the left common femoral artery, origin of the left femoral popliteal bypass as well as in the proximal popliteal artery. Significant stenoses suspected however not well visualized. -------- FINAL REPORT -------- Dictated By: Tarah Mayo Dictated Date: 01/03/2025 16:12 ET Assigned Physician: Tarah Mayo Reviewed and Electronically Signed By: Tarah Mayo Signed Date: 01/03/2025 16:18 ET Workstation ID: [id number] Transcribed By: Self Edit Transcribed Date: 01/03/2025 16:12 ET Narrative 01/03/2025 4:18 PM EDT INDICATION: Ulceration within the left lower extremity, peripheral arterial disease TECHNIQUE: Arterial duplex imaging obtained of the left lower extremity. Prior relevant imaging studies: July 02, 2021 Left leg: Common femoral artery: Persistent elevation of velocity in left common femoral artery up to 224 cm/s. Increased velocity within the anastomosis measuring up to 260 cm/s with abnormal waveform. Velocity in the distal graft measures 89 cm/s and within the distal anastomosis 81 cm/s with monophasic waveform. Superficial femoral artery: Occluded Popliteal artery: Elevated velocity in the proximal popliteal artery up to 214 cm/s with abnormal waveform. Velocity in the distal popliteal artery measures 88 cm/s with monophasic waveform. Posterior tibial artery: Monophasic flow throughout measuring 80 cm/s distally. Anterior tibial artery: Monophasic flow throughout decreasing to 18 cm/s distally. Procedure Note Tarah Mayo MD - 01/03/2025 INDICATION: Ulceration within the left lower extremity, peripheralarterial disease TECHNIQUE: Arterial duplex imaging obtained of the left lower extremity. Prior relevant imaging studies: July 02, 2021 Left leg: Common femoral artery: Persistent elevation of velocity in left commonfemoral artery up to 224 cm/s. Increased velocity within the anastomosismeasuring up to 260 cm/s with abnormal waveform. Velocity in the distalgraft measures 89 cm/s and within the distal anastomosis 81 cm/s withmonophasic waveform. Superficial femoral artery: Occluded Popliteal artery: Elevated velocity in the proximal popliteal artery up to214 cm/s with abnormal waveform. Velocity in the distal popliteal arterymeasures 88 cm/s with monophasic waveform. Posterior tibial artery: Monophasic flow throughout measuring 80 cm/sdistally. Anterior tibial artery: Monophasic flow throughout decreasing to 18 cm/sdistally. IMPRESSION: Left leg: Persistent elevated velocity within the left common femoralartery, origin of the left femoral popliteal bypass as well as in theproximal popliteal artery. Significant stenoses suspected however not wellvisualized. -------- FINAL REPORT -------- Dictated By: Tarah Mayo Dictated Date: 01/03/2025 16:12 ET Assigned Physician: Tarah Mayo Reviewed and Electronically Signed By: Tarah Mayo Signed Date: 01/03/2025 16:18 ET Workstation ID: [id number] Transcribed By: Self Edit Transcribed Date: 01/03/2025 16:12 ET us Mary LUTZ CV VASCULAR PROCEDURES Fin al Result * Vascular US duplex lower extremity arteries right with Doppler (01/02/2025 7:44 PM EDT) Anatomical Region Laterality Modality Vascular, Abdomen Ultrasound 01/02/2025 8:03 PM EDT Impressions 01/02/2025 8:03 PM EDT Normal right lower extremity arterial duplex from the common femoral through the popliteal artery. Lower leg arteries were not evaluated due to pain. This document has been electronically signed by: Giuliana Jackson MD on 01/02/2025 20:03:01 Narrative 01/02/2025 8:03 PM EDT INDICATION: Ulceration Arterial duplex ultrasound right lower extremity Comparison: None Findings: Continuous, pulsatile flow with normal waveforms from common femoral arteries through the popliteal artery. Lower leg arteries were not evaluated due to pain. No focal stenosis, aneurysm or occlusion identified. Velocities are within normal range. Procedure Note Giuliana Jackson MD - 01/02/2025 INDICATION: Ulceration Arterial duplex ultrasound right lower extremity Comparison: None Findings: Continuous, pulsatile flow with normal waveforms from common femoral arteries through the popliteal artery. Lower leg arteries were not evaluated due to pain. No focal stenosis, aneurysm or occlusion identified. Velocities arewithin normal range. IMPRESSION: Normal right lower extremity arterial duplex from the common femoral through the popliteal artery. Lower leg arteries were not evaluated due to pain. This document has been electronically signed by: Giuliana Jackson MD on 01/02/2025 20:03:01 us Mary LUTZ CV VASCULAR PROCEDURES Fin al Result * (ABNORMAL) MRSA molecular study (01/02/2025 6:44 PM EDT) [facility] MRSA Screen PCR Detected (A) Not Detected LAB MICROBIOLOGY METHOD 01/02/2025 9:01 PM EDT [facility] Swab Nasopharyngeal structure / Unknown Non-blood Collection / Unknown 01/02/2025 6:44 PM EDT 01/02/2025 7:14 PM EDT Mary LUTZ LAB MICROBIOLOGY - GENERAL ORDERABLES Final Result Performing Organization Address [facility]/ZIP Co de Phone Number [facility] [address] [place] [address], [place] [phone] * (ABNORMAL) POCT Glucose, blood (01/02/2025 3:49 PM EDT) Only the most recent of2 resultswithin the time period is included. [facility] Glucose POCT 104(H) 70 - 100 mg/dL 01/02/2025 3:50 PM EDT [facility] Blood Capillary blood specimen / Unknown 01/02/2025 3:49 PM EDT 01/02/2025 3:51 PM EDT us Mitzi Pace MD LAB POINT OF CARE TE ST DOCKED DEVICE UNSOLICITED RESULTS Final Result Performing Organization Address [facility]/ZIP Co de Phone Number [facility] [address] [place] [address], [place] [phone] * CT Head wo Contrast (01/01/2025 11:01 AM EDT) Anatomical Region Laterality Modality Head and Neck Computed Tomogra phy 01/01/2025 11:1 6 AM EDT Impressions 01/01/2025 11:21 AM EDT Impression: 1. No acute hemorrhage or intracranial mass effect. 2. Moderate, nonspecific deep white matter changes compatible with chronic microvascular ischemia in a patient of this age. 3. Small frontoparietal convexity meningioma without associated mass effect, unchanged. 4. Partial opacification of the left mastoid air cells, new from 09/16/24, likely infectious/inflammatory. Telerad NELDA ([id number]) -------- FINAL REPORT -------- Dictated By: Maddie Li Dictated Date: 01/01/2025 11:16 ET Assigned Physician: Maddie Li Reviewed and Electronically Signed By: Maddie Li Signed Date: 01/01/2025 11:21 ET Workstation ID: [id number] Transcribed By: Self Edit Transcribed Date: 01/01/2025 11:16 ET Narrative 01/01/2025 11:21 AM EDT History: Altered mental status, unknown cause. Comparison: 09/16/24 Technique: Contiguous axial images were obtained at 2.5 mm intervals through the posterior fossa and at 5 mm intervals through the remainder of the brain without intravenous contrast. DLP: 936.52 mGy/cm [employer] Iterative reconstruction technique Findings: Moderate to advanced generalized cerebral volume loss is again demonstrated. Patchy deep white matter hypodensity is again seen bilaterally, unaccompanied by mass effect or hemorrhage and without significant change. No abnormal intra- or extra-axial fluid collections are seen. There is no evidence of acute intracranial hemorrhage. A circumscribed, 13 mm partially calcified extra-axial mass with a broad dural base along the right frontoparietal convexity is unchanged, most likely a meningioma. There is no significant associated mass effect. The left mastoid air cells are partially opacified, new, likely infectious/inflammatory. The included portions of the paranasal sinuses are well aerated. Procedure Note Maddie Li MD - 01/01/2025 History: Altered mental status, unknown cause. Comparison: 09/16/24 Technique: Contiguous axial images were obtained at 2.5 mm intervalsthrough the posterior fossa and at 5 mm intervals through the remainder ofthe brain without intravenous contrast. DLP: 936.52 mGy/cm [employer] Iterative reconstruction technique Findings: Moderate to advanced generalized cerebral volume loss is againdemonstrated. Patchy deep white matter hypodensity is again seenbilaterally, unaccompanied by mass effect or hemorrhage and withoutsignificant change. No abnormal intra- or extra-axial fluid collections are seen. There is noevidence of acute intracranial hemorrhage. A circumscribed, 13 mm partially calcified extra-axial mass with a broaddural base along the right frontoparietal convexity is unchanged, mostlikely a meningioma. There is no significant associated mass effect. The left mastoid air cells are partially opacified, new, likelyinfectious/inflammatory. The included portions of the paranasal sinusesare well aerated. IMPRESSION: Impression: 1. No acute hemorrhage or intracranial mass effect. 2. Moderate, nonspecific deep white matter changes compatible with chronicmicrovascular ischemia in a patient of this age. 3. Small frontoparietal convexity meningioma without associated masseffect, unchanged. 4. Partial opacification of the left mastoid air cells, new from 09/16/24,likely infectious/inflammatory. Telesharif LUTZ ([id number]) -------- FINAL REPORT -------- Dictated By: Maddie Li Dictated Date: 01/01/2025 11:16 ET Assigned Physician: Maddie Li Reviewed and Electronically Signed By: Maddie Li Signed Date: 01/01/2025 11:21 ET Workstation ID: [id number] Transcribed By: Self Edit Transcribed Date: 01/01/2025 11:16 ET us Farida LUTZ IMG CT PROCEDURES Final Result * Hemoglobin A1c (01/01/2025 8:47 AM EDT) Hemoglobin A1C 5.3 <6.5 % LAB CHEMISTRY METHOD 01/01/2025 2:06 PM EDT [facility] Mean Bld Glu Estim. 105 mg/dL LAB CHEMISTRY METHOD 01/01/2025 2:06 PM EDT [facility] Blood Venous blood specimen / Unknown Venipuncture / Unknown 01/01/2025 8:47 AM EDT 01/01/2025 8:52 AM EDT us Farida LUTZ LAB BLOOD ORDERABLES Final Resul t [facility] [address] [place] [address], [place] [phone] * (ABNORMAL) Urinalysis with reflex microscopic and culture (01/01/2025 2:19 AM EDT) Specific [place] Urine 1.012 1.003 - 1.030 LAB URINALYSIS - AUTOMATED METHOD 01/01/2025 2:37 AM [facility] pH, Urine 5.5 5.0 - 8.0 pH LAB URINALYSIS - AUTOMATED METHOD 01/01/2025 2:37 AM [facility] Leukocytes, Urine Negative Negative LAB URINALYSIS - AUTOMATED METHOD 01/01/2025 2:37 AM [facility] Nitrite, Urine Positive(A) Negative LAB URINALYSIS - AUTOMATED METHOD 01/01/2025 2:37 AM [facility] Protein, Urine Negative <=Trace mg/dL LAB URINALYSIS - AUTOMATED METHOD 01/01/2025 2:37 AM [facility] Glucose, Urine Negative Negative mg/dL LAB URINALYSIS - AUTOMATED METHOD 01/01/2025 2:37 AM [facility] Ketones, Urine Negative Negative mg/dL LAB URINALYSIS - AUTOMATED METHOD 01/01/2025 2:37 AM [facility] Urobilinogen , Urine 0.2 0.2 - 1.0 mg/dL LAB URINALYSIS - AUTOMATED METHOD 01/01/2025 2:37 AM [facility] Bilirubin, Urine Negative Negative LAB URINALYSIS - AUTOMATED METHOD 01/01/2025 2:37 AM [facility] Blood, Urine Negative Negative LAB URINALYSIS - AUTOMATED METHOD 01/01/2025 2:37 AM [facility] RBC, Urine 0.5 0 - 4 /HPF LAB URINALYSIS - AUTOMATED METHOD 01/01/2025 2:37 AM [facility] WBC, Urine 3.5 0 - 4 /HPF LAB URINALYSIS - AUTOMATED METHOD 01/01/2025 2:37 AM [facility] Squamous Epithelial, Urine 28 0 - 60 /LPF LAB URINALYSIS - AUTOMATED METHOD 01/01/2025 2:37 AM EDT [facility] Bacteria, Urine Moderate(A) Negative /HPF LAB URINALYSIS - AUTOMATED METHOD 01/01/2025 2:37 AM EDT [facility] Hyaline Casts, Urine 0.0 0 - 3 /LPF LAB URINALYSIS - AUTOMATED METHOD 01/01/2025 2:37 AM EDT [facility] Urine Urine specimen obtained by clean catch procedure / Unknown Non-blood Collection / Unknown 01/01/2025 2:19 AM EDT 01/01/2025 2:27 AM EDT Dallin Francisco DO LAB URINE ORDERABLES Final Result Performing Organization Address City/[facility]/ZIP Co de Phone Number [facility] [address] [place] [address], [place] [phone] * Ingram urine culture tube (01/01/2025 2:19 AM EDT) Extra Tube Hold for add-ons. 01/01/2025 4:01 AM EDT [facility] Comment:Auto resulted. Urine Urine specimen obtained by clean catch procedure / Unknown Non-blood Collection / Unknown 01/01/2025 2:19 AM EDT 01/01/2025 2:27 AM EDT Dallin Francisco DO LAB URINE ORDERABLES Final Result [facility] [address] [place] [address], [place] [phone] * (ABNORMAL) Culture urine (01/01/2025 2:19 AM EDT) Culture, Urine >100,000 CFU/mL Escherichia coli(A) KRISTEN 01/03/2025 11:56 AM EDT [facility] Comment: This is an edited result. Previous organism was Gram negative bacilli on 01/02/2025 at 0844 EDT. Urine Urine specimen obtained by clean catch procedure / Unknown Non-blood Collection / Unknown 01/01/2025 2:19 AM EDT 01/01/2025 2:37 AM EDT Narrative Organism Antibiotic Method Susceptibility Escherichia coli Amoxicillin/Clavulanate KRISTEN 16 ug/ml: Intermediate Escherichia coli Ampicillin/Sulbactam KRISTEN >=32 ug/ml: Resistant Escherichia coli Piperacillin/Tazobactam KRISTEN 16 ug/ml: Intermediate Escherichia coli Cefazolin (Urine) KRISTEN 16 ug/ml: Susceptible Escherichia coli Cefoxitin KRISTEN >=64 ug/ml: Resistant Escherichia coli Ceftazidime KRISTEN <=0.5 ug/ml: Susceptible Escherichia coli Ceftriaxone KRISTEN <=0.25 ug/ml: Susceptible Escherichia coli Cefepime KRISTEN <=0.12 ug/ml: Susceptible Escherichia coli Meropenem KRISTEN <=0.25 ug/ml: Susceptible Escherichia coli Amikacin KRISTEN 2 ug/ml: Susceptible Escherichia coli Gentamicin KRISTEN <=1 ug/ml: Susceptible Escherichia coli Ciprofloxacin KRISTEN 1 ug/ml: Resistant Escherichia coli Levofloxacin KRISTEN 2 ug/ml: Resistant Escherichia coli Nitrofurantoin KRISTEN <=16 ug/ml: Susceptible Escherichia coli Trimethoprim/Sulfamethoxazole KRISTEN >=320 ug/ml: Resistant us Dallin Francisco DO LAB MICROBIOLOGY - GENERAL ORDERABLES Final Result [facility] [address] [place] [address], * Troponin I high sensitivity (01/01/2025 2:17 AM EDT) [facility] High Sensitivity Troponin I 30 <=54 ng/L LAB CHEMISTRY METHOD 01/01/2025 2:54 AM EDT [facility] Blood Venous blood specimen / Unknown Venipuncture / Unknown 01/01/2025 2:17 AM EDT 01/01/2025 2:28 AM EDT Narrative [facility] - 01/01/2025 2:54 AM EDT High levels of biotin in samples may falsely decrease hsTroponin values. ??Use caution when interpreting hsTroponin results in patients taking biotin who exhibit renal impairment (eGFR <60) or in patients taking more than 20 mg/day of biotin. Leonela Chowdhury MD LAB BLOOD ORDERABLES Fin al Result Performing Organization Address [facility] Co de Phone Number [facility] [address] [place] [address], [place] [phone] * (ABNORMAL) B-type natriuretic peptide (01/01/2025 2:17 AM EDT) [facility] BNP 219(H) <=100 pcg/mL LAB CHEMISTRY METHOD 01/01/2025 3:00 AM EDT [facility] Blood Venous blood specimen / Unknown Venipuncture / Unknown 01/01/2025 2:17 AM EDT 01/01/2025 2:28 AM EDT Leonela Chowdhury MD LAB BLOOD ORDERABLES Fin al Result Performing Organization Address [facility] de Phone Number [facility] [address] [place] [address], [place] [phone] * (ABNORMAL) Arterial blood gas (01/01/2025 2:03 AM EDT) [facility] pH, Arterial 7.46(H) 7.35 - 7.45 pH 01/01/2025 2:22 AM EDT [facility] pCO2, Arterial 52(H) 35 - 45 mmHg 01/01/2025 2:22 AM EDT [facility] pO2, Arterial 80 80 - 100 mmHg 01/01/2025 2:22 AM EDT [facility] HCO3, Arterial 34.1(H) 22.0 - 26.0 mmol/L 01/01/2025 2:22 AM EDT [facility] O2 Sat, Arterial 98.5(H) 95.0 - 98.0 % 01/01/2025 2:22 AM EDT [facility] Base Excess, Arterial 11.8(H) -2.0 - 2.0 mmol/L 01/01/2025 2:22 AM EDT [facility] Chris Test Pass Pass, Unresponsi ve, Line 01/01/2025 2:22 AM EDT [facility] FIO2 01/01/2025 2:22 AM EDT [facility] Comment:5 L Blood Arterial blood specimen / Unknown Arterial Puncture / Unknown 01/01/2025 2:03 AM EDT 01/01/2025 2:05 AM EDT us Leonela Chowdhury MD LAB BLOOD ORDERABLES Fin al Result [facility] [address] [place] [address], * (ABNORMAL) Venous blood gas (01/01/2025 1:22 AM EDT) pH, Flip 7.44(H) 7.32 - 7.42 pH 01/01/2025 1:33 AM [facility] pCO2, Flip 60(H) 41 - 51 mmHg 01/01/2025 1:33 AM [facility] pO2, Flip 35 25 - 40 mmHg 01/01/2025 1:33 AM [facility] HCO3, Venous 35.8(H) 22.0 - 26.0 mmol/L 01/01/2025 1:33 AM [facility] O2 Sat, Flip 56.1 % 01/01/2025 1:33 AM EDT [facility] Base Excess, Flip 14.8(H) -2.0 - 2.0 mmol/L 01/01/2025 1:33 AM EDT [facility] Blood Venous blood specimen / Unknown Venipuncture / Unknown 01/01/2025 1:22 AM EDT 01/01/2025 1:26 AM EDT Leonela Chowdhury MD LAB BLOOD ORDERABLES Fin al Result [facility] [address] [place] [address], [place] [phone] * ECG-Annotated (01/01/2025) us Provider Onbase ECG ORDERABLES Final Result * XR Chest 1 View (12/31/2024 10:52 PM EDT) Anatomical Region Laterality Modality Body Radiographic Lucie ging 01/01/2025 9:09 AM EDT Impressions 01/01/2025 9:12 AM EDT Impression: 1. Limited study. 2. Stable cardiomegaly. 3. Left hemidiaphragm silhouetted, possibly related to the enlarged heart, with a developing left lower lobe process not excluded. Follow-up PA and lateral views recommended when the patient is able. Telerad PA ([id number]) -------- FINAL REPORT -------- Dictated By: Maddie Li Dictated Date: 01/01/2025 09:09 ET Assigned Physician: Maddie Li Reviewed and Electronically Signed By: Maddie Li Signed Date: 01/01/2025 09:12 ET Workstation ID: [id number] Transcribed By: Self Edit Transcribed Date: 01/01/2025 09:09 ET Narrative 01/01/2025 9:12 AM EDT History: Chest pain. Lethargy. Comparison: 09/21/24, 04/29/23, thoracic CTA 09/16/24 Findings: Portable AP upright chest at 10:40 PM. This is a poor inspiration and the patient is rotated. The cardiac silhouette remains enlarged, with atherosclerotic calcification of the aorta. The left hemidiaphragm is silhouetted, similar to the previous studies, possibly related to the enlarged heart with prominent pericardial fat, with CT correlation. A developing left lower lobe process cannot be excluded. The right lung is grossly clear. The central pulmonary vessels are prominent. Procedure Note Maddie Li MD - 01/01/2025 History: Chest pain. Lethargy. Comparison: 09/21/24, 04/29/23, thoracic CTA 09/16/24 Findings: Portable AP upright chest at 10:40 PM. This is a poor inspiration and the patient is rotated. The cardiacsilhouette remains enlarged, with atherosclerotic calcification of theaorta. The left hemidiaphragm is silhouetted, similar to the previousstudies, possibly related to the enlarged heart with prominent pericardialfat, with CT correlation. A developing left lower lobe process cannot beexcluded. The right lung is grossly clear. The central pulmonary vesselsare prominent. IMPRESSION: Impression: 1. Limited study. 2. Stable cardiomegaly. 3. Left hemidiaphragm silhouetted, possibly related to the enlarged heart,with a developing left lower lobe process not excluded. Follow-up PA andlateral views recommended when the patient is able. Telerad NELDA ([id number]) -------- FINAL REPORT -------- Dictated By: Maddie Li Dictated Date: 01/01/2025 09:09 ET Assigned Physician: Maddie Li Reviewed and Electronically Signed By: Maddie Li Signed Date: 01/01/2025 09:12 ET Workstation ID: [id number] Transcribed By: Self Edit Transcribed Date: 01/01/2025 09:09 ET us Alex Abebe MD IMG XR PROCEDURES Final Res ult * Vitamin B12 and folate (12/31/2024 10:14 PM EDT) Vitamin B-12 429 250 - 900 pcg/mL LAB CHEMISTRY METHOD 01/01/2025 6:39 AM EDT [facility] Folate 12.9 2.8 - 17.0 ng/ml LAB CHEMISTRY METHOD 01/01/2025 6:39 AM EDT [facility] Blood Venous blood specimen / Unknown Venipuncture / Unknown 12/31/2024 10:14 PM EDT 12/31/2024 10:19 PM EDT Alex Abebe MD LAB BLOOD ORDERABLES Final Result Performing Organization Address [facility] de Phone Number [facility] [address] [place] [address], [place] [phone] * (ABNORMAL) Iron and TIBC (12/31/2024 10:14 PM EDT) [facility] Iron 18(L) 40 - 150 mcg/dL LAB CHEMISTRY METHOD 01/01/2025 6:17 AM EDT [facility] TIBC 273 250 - 450 mcg/dL LAB CHEMISTRY METHOD 01/01/2025 6:17 AM EDT [facility] Iron Saturation 7(L) 15 - 50 % LAB CHEMISTRY METHOD 01/01/2025 6:17 AM EDT [facility] Blood Venous blood specimen / Unknown Venipuncture / Unknown 12/31/2024 10:14 PM EDT 12/31/2024 10:19 PM EDT Alex Abebe MD LAB BLOOD ORDERABLES Final Result Performing Organization Address [facility] de Phone Number [facility] [address] [place] [address], [place] [phone] * (ABNORMAL) Reticulocyte count (12/31/2024 10:14 PM EDT) Retic Ct Abs 0.130(H) 0.030 - 0.090 M/mcL LAB HEMETOLOGY METHOD 01/01/2025 6:17 AM EDT [facility] Retic Ct Pct 4.4(H) 0.7 - 1.7 % LAB HEMETOLOGY METHOD 01/01/2025 6:17 AM EDT [facility] Immature Retic Fract 30.0(H) 2.3 - 15.9 % LAB HEMETOLOGY METHOD 01/01/2025 6:17 AM EDT [facility] Reticulocyte Hemoglobin 21.4(L) >29.0 pcg LAB HEMETOLOGY METHOD 01/01/2025 6:17 AM EDT [facility] Blood Venous blood specimen / Unknown Venipuncture / Unknown 12/31/2024 10:14 PM EDT 12/31/2024 10:19 PM EDT Alex Abebe MD LAB BLOOD ORDERABLES Final Result Performing Organization Address [facility]/ZIP Co de Phone Number [facility] [address] [place] [address], [place] [phone] * (ABNORMAL) Ammonia (12/31/2024 10:14 PM EDT) Ammonia 10(L) 11 - 35 mcmol/L LAB CHEMISTRY METHOD 12/31/2024 10:46 PM EDT [facility] Blood Venous blood specimen / Unknown Venipuncture / Unknown 12/31/2024 10:14 PM EDT 12/31/2024 10:19 PM EDT Dallin Francisco DO LAB BLOOD ORDERABLES Final Result [facility] [address] [place] [address], [place] [phone] * (ABNORMAL) Comprehensive metabolic panel (12/31/2024 10:14 PM EDT) Sodium 140 133 - 145 mmol/L LAB CHEMISTRY METHOD 12/31/2024 10:56 PM EDT [facility] Potassium 4.5 3.5 - 5.5 mmol/L LAB CHEMISTRY METHOD 12/31/2024 10:56 PM [facility] Chloride 100 96 - 110 mmol/L LAB CHEMISTRY METHOD 12/31/2024 10:56 PM [facility] CO2 36(H) 21 - 32 mmol/L LAB CHEMISTRY METHOD 12/31/2024 10:56 PM [facility] Anion Gap 4 3 - 11 LAB CHEMISTRY METHOD 12/31/2024 10:56 PM [facility] Glucose 201(H) 70 - 100 mg/dL LAB CHEMISTRY METHOD 12/31/2024 10:56 PM [facility] BUN 22 5 - 25 mg/dL LAB CHEMISTRY METHOD 12/31/2024 10:56 PM [facility] Creatinine 0.97 0.50 - 1.10 mg/dL LAB CHEMISTRY METHOD 12/31/2024 10:56 PM [facility] eGFR 57(L) >=60 mL/min/1. 73m2 LAB CHEMISTRY METHOD 12/31/2024 10:56 PM [facility] Comment:Calculation based on the??Chronic Kidney Disease Epidemiology Collaboration (CKD-EPI) equation refit??without adjustment for race. BUN/Creatinine Ratio 22.7 LAB CHEMISTRY METHOD 12/31/2024 10:56 PM [facility] Calcium 8.8 8.5 - 10.5 mg/dL LAB CHEMISTRY METHOD 12/31/2024 10:56 PM [facility] AST (SGOT) 13 10 - 42 unit/L LAB CHEMISTRY METHOD 12/31/2024 10:56 PM [facility] ALT (SGPT) 9(L) 10 - 60 unit/L LAB CHEMISTRY METHOD 12/31/2024 10:56 PM [facility] Alkaline Phosphatase 103 42 - 121 unit/L LAB CHEMISTRY METHOD 12/31/2024 10:56 PM [facility] Total Protein 6.5 6.0 - 8.0 g/dL LAB CHEMISTRY METHOD 12/31/2024 10:56 PM EDT [facility] Albumin 2.3(L) 3.2 - 5.0 g/dL LAB CHEMISTRY METHOD 12/31/2024 10:56 PM EDT [facility] Total Bilirubin 0.3 0.0 - 1.4 mg/dL LAB CHEMISTRY METHOD 12/31/2024 10:56 PM EDT [facility] Blood Venous blood specimen / Unknown Venipuncture / Unknown 12/31/2024 10:14 PM EDT 12/31/2024 10:19 PM EDT Dallin Francisco DO LAB BLOOD ORDERABLES Final Result [facility] [address] [place] [address], [place] [phone] * ECG 12 lead (12/31/2024 9:54 PM EDT) Ventricular Rate ECG 76 BPM GEMUSE Atrial Rate 76 BPM GEMUSE P-R Interval 166 ms GEMUSE QRS Duration 108 ms GEMUSE Q-T Interval 390 ms GEMUSE QTc 438 ms GEMUSE P Wave [place] 71 degrees GEMUSE R [place] -51 degrees GEMUSE T [place] 96 degrees GEMUSE ECG Interpretation Normal sinus rhythm Left anterior fascicular block Left ventricular hypertrophy with repolarization abnormality When compared with ECG of 29-FEB-2024 13:19, Inverted T waves have replaced nonspecific T wave abnormality in Lateral leads Confirmed by RENEE HINOJOSA ([id number]) on 01/01/2025 6:10:53 PM GEMUSE 12/31/2024 9:54 PM EDT 01/01/2025 6:10 PM EDT us Dallin Francisco DO ECG ORDERABLES Final Resul t GEMUSE from Last 3 Months Additional Health Concerns Infection Onset Date Last 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,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, Urine Culture 01/01/2025 01/03/2025 Gastrointestinal Rule-Out 01/05/20252024 Insurance BLUE CROSS - [place] MEDICARE AD[place]ANTAGE Advance Directives Documents on File Type Date Recorded Patient Plate Filler Expl anation Advance Directives and Living Will 09/29/2024 9:42 AM PROXY Advance Directives and Living Will 09/23/2024 10:32 AM Health Care Decision (hx) 02/09/2022 AD KAPOOR DIRECTIVE Health Care Decision (hx) 02/09/2022 AD KAPOOR DIRECTIVE Health Care Decision (hx) 02/09/2022 AD KAPOOR DIRECTIVE Health Care Decision (hx) 02/09/2022 AD KAPOOR DIRECTIVE Health Care Decision (hx) 02/09/2022 AD KAPOOR DIRECTIVE Health Care Decision (hx) 02/09/2022 AD KAPOOR DIRECTIVE Health Care Decision (hx) 02/09/2022 AD KAPOOR DIRECTIVE Health Care Decision (hx) 02/09/2022 AD KAPOOR DIRECTIVE Health Care Decision (hx) 02/09/2022 AD KAPOOR DIRECTIVE Health Care Decision (hx) 02/09/2022 AD KAPOOR DIRECTIVE Health Care Decision (hx) 02/09/2022 AD KAPOOR DIRECTIVE Health Care Decision (hx) 02/09/2022 AD KAPOOR DIRECTIVE Health Care Decision (hx) 02/09/2022 AD KAPOOR DIRECTIVE Health Care Decision (hx) 02/09/2022 AD KAPOOR DIRECTIVE Health Care Decision (hx) 02/09/2022 AD KAPOOR DIRECTIVE Health Care Decision (hx) 02/09/2022 AD KAPOOR DIRECTIVE Health Care Decision (hx) 02/09/2022 AD KAPOOR DIRECTIVE Health Care Decision (hx) 02/09/2022 AD KAPOOR DIRECTIVE Health Care Decision (hx) 02/09/2022 AD KAPOOR DIRECTIVE Health Care Decision (hx) 02/09/2022 AD KAPOOR DIRECTIVE Health Care Decision (hx) 02/09/2022 AD KAPOOR DIRECTIVE Health Care Decision (hx) 02/09/2022 AD KAPOOR DIRECTIVE Health Care Decision (hx) 02/09/2022 AD KAPOOR DIRECTIVE Health Care Decision (hx) 02/09/2022 AD KAPOOR DIRECTIVE Health Care Decision (hx) 02/09/2022 AD KAPOOR DIRECTIVE Health Care Decision (hx) 02/09/2022 AD KAPOOR DIRECTIVE Health Care Decision (hx) 02/09/2022 AD KAPOOR DIRECTIVE Health Care Decision (hx) 02/09/2022 AD KAPOOR DIRECTIVE Health Care Decision (hx) 02/09/2022 AD KAPOOR DIRECTIVE Health Care Decision (hx) 02/09/2022 AD KAPOOR DIRECTIVE Health Care Decision (hx) 02/09/2022 AD KAPOOR DIRECTIVE Health Care Decision (hx) 02/09/2022 AD KAPOOR DIRECTIVE Health Care Decision (hx) 02/09/2022 AD KAPOOR DIRECTIVE Health Care Decision (hx) 02/09/2022 AD KAPOOR DIRECTIVE Health Care Decision (hx) 02/09/2022 AD KAPOOR DIRECTIVE Health Care Decision (hx) 02/09/2022 AD KAPOOR DIRECTIVE Health Care Decision (hx) 02/09/2022 AD KAPOOR DIRECTIVE Health Care Decision (hx) 02/09/2022 AD KAPOOR DIRECTIVE Health Care Decision (hx) 02/09/2022 AD KAPOOR DIRECTIVE Health Care Decision (hx) 02/09/2022 AD KAPOOR DIRECTIVE Health Care Decision (hx) 02/09/2022 AD KAPOOR DIRECTIVE Health Care Decision (hx) 02/09/2022 AD KAPOOR DIRECTIVE Health Care Decision (hx) 02/09/2022 AD KAPOOR DIRECTIVE Health Care Decision (hx) 08/25/2020 AD KAPOOR DIRECTIVE Health Care Decision (hx) 08/19/2020 AD KAPOOR DIRECTIVE * No CPR/Do Not Intubate (Latest Code Status on File) Date Activated Date Inactivated Comments 01/01/2025 10:10 AM 01/05/2025 4:39 PM This code s tatus was ascertained in the following way: Code status discussion: per living will or healthcare instructions To update the patient's code status, place a code status order. Do not modify or discontinue any currently active code status orders. * Full Code - Default Date Activated Date Inactivated Comments 01/01/2025 6:21 AM 01/01/2025 10:10 AM This is ord er is used when code status has not been discussed with the patient, or code status is otherwise unknown/unconfirmed To update the patient's code status, place a code status order. Do not modify or discontinue any currently active code status orders. * No CPR/Do Not Intubate Date Activated Date Inactivated Comments 09/16/2024 11:11 PM 09/28/2024 1:18 PM This code status was ascertained in the following way: Code status discussion: discussion with healthcare shipping services sales representative To update the patient's code status, place a code status order. Do not modify or discontinue any currently active code status orders. * Full Code - Default Date Activated Date Inactivated Comments 09/16/2024 9:35 PM 09/16/2024 11:11 PM This is o rder is used when code status has not been discussed with the patient, or code status is otherwise unknown/unconfirmed To update the patient's code status, place a code status order. Do not modify or discontinue any currently active code status orders. Healthcare Agents on File Name Relationship Healthcare Agent [facility] p Communication Piedadfrancisco Schultz Daughter Health Care Agent Gale OMER [place] Daughter Health Care Agent Radha Meehan Other First Alternate Health Care Agent Care Teams Analysis Consultant Relationship Specialty Start Date End Date Bere Delarosa MD [address] [place] [phone] PCP - General Internal Medicine 04/03/21
--- OUTSIDE RECORDS SUMMARY | 2025-01-14 15:30 | XMS_ITS | Patient Health Record ---
[facility] Address [address] [place] [address] Care Team Providers Care Interlocking Tower Operator Name Role Phone Jarad CALLEJAS, Ruslan Primary Care Provider Sarah Baltazar Unavailable [phone] Allergies Allergen (clinical drug ingredient) Drug/Non Drug Allergy documented on EMR Reaction Allergy Type Onset Date Status cefaclor Cefaclor Unknown Drug Allergy Active Ceftin Unknown Drug Allergy Active Keflex Unknown Drug Allergy Active Reason For Referral No Information Medications Medication SIG (Take, Route, Frequency, Duration) Notes Start Date End Date Status Famotidine 20 MG 1 tablet at bedtime Orally Once a day Unknown Carvedilol 6.25 MG Orally U nknown clonazePAM 0.5 MG 1 tablet at bedtime Orally prn Unknown Furosemide 40 MG 1 tablet Orally Once a day Unknown Rosuvastatin Calcium Unknown Ciclopirox Olamine 0.77 % 1 application to affected area Externally to feet Twice a day for 30 days Active Multivitamin Unknown Aspirin 81 MG 1 tablet Orally Once a day Unknown Magnesium Unknown Social History Tobacco Use: Social History Observation Description Date Details (start date - stop date) Former Smoker NA - NA Tobacco Use/Smoking Question Answer Notes Are you a: former smoker Additional Findings: Tobacco User Heavy cigarett e smoker (20-39 cigs/day) Additional Findings: Tobacco Non-User Current no n-smoker Problems Problem Type SNOMED Code ICD Code Onset Dates Problem Status W/U Status Risk Notes Problem [id number] Other atherosclerosis of [place] arteries of extremities, 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
--- OUTSIDE RECORDS SUMMARY | 2025-01-14 15:31 | XMS_ITS | Clinical Summary ---
Author Organization [facility] Address [address] [place] [address] Care Team Providers Care Pit Laborer Name Role Phone Bere Delarosa MD Primary Care Provider [phone] Allergies Active Allergy Reactions Criticality Noted Date Comments Gabapentin 10/20/2018 Cephalexin 12/04/2018 Medications Medication Sig Dispensed Refills Start Date End Date Status allopurinol (ZYLOPRIM) 100 MG tablet Take 100 mg by mouth daily. 3 09/14/2018 Active carvedilol (COREG) 6.25 MG tablet 12.5 mg 2 (two) times a day with meals. 0 07/31/2018 Active aspirin EC 81 MG tablet Take 81 mg by mouth daily. 0 Active cetirizine (ZyrTEC) 10 MG tablet Take 10 mg by mouth daily. 0 Active melatonin 3 MG TABS tablet Take by mouth every night at bedtime. 0 Active pantoprazole (PROTONIX) 40 MG tablet Take 40 mg by mouth every morning on an empty stomach. 0 Active rosuvastatin (CRESTOR) tablet 10 mg Take 10 mg by mouth daily. 0 Active DULoxetine (CYMBALTA) DR capsule 20 mgIndications:Major Depressive Disorder Take 30 mg by mouth daily. 0 Active hydrophilic wound dressing (TRIAD) PSTE paste Apply 1 application topically every 12 (twelve) hours. 1 Tube 0 07/28/2020 Active mineral oil-hydrophilic petrolatum (AQUAPHOR) ointment Apply topically every 12 (twelve) hours. 420 g 0 07/28/2020 Active nystatin (MYCOSTATIN) cream Apply topically every 12 (twelve) hours. 30 g 0 07/28/2020 Active diphenhydrAMINE-zinc acetate cream Apply topically 3 (three) times a day as needed for itching. 28.4 g 0 07/28/2020 Active magnesium hydroxide (MILK OF MAGNESIA) 400 MG/5ML suspension Take 30 mL by mouth every night at bedtime as needed for constipation. 360 mL 0 07/28/2020 Active potassium chloride ER (K-DUR,KLOR-CON) tablet 10 mEq Take 2 tablets (20 mEq total) by mouth daily. 90 tablet 0 07/28/2020 Active zinc sulfate (ZINCATE) 220 (50 Zn) MG capsule Take 1 capsule (220 mg total) by mouth daily. 90 capsule 0 07/28/2020 Active SYNTHROID 25 MCG tablet Take 1 tablet (25 mcg total) by mouth every morning on an empty stomach. 90 tablet 0 07/28/2020 Active Magnesium Oxide 400 (240 Mg) MG TABS Take 1 tablet (400 mg total) by mouth 2 (two) times a day. 60 tablet 0 09/05/2020 Active hydrocortisone 1 % cream Apply topically 2 (two) times a day as needed (itching). 30 g 0 09/08/2020 Active hydrocortisone (ANUSOL-HC) [address] 1 suppository (25 mg total) rectally 2 (two) times a day after meals. 12 suppository 0 09/08/2020 Active iron polysaccharides (NIFEREX) 150 MG capsule Take 1 capsule (150 mg total) by mouth 3 (three) times a week. 30 capsule 0 09/08/2020 Active doxycycline (VIBRAMYCIN) 100 MG capsule Take 1 capsule (100 mg total) by mouth every 12 (twelve) hours. 60 capsule 3 01/02/2021 Active Acetaminophen-Codein e (TYLENOL/CODEINE #3) 300-30 MG per tablet 1 tab nightly for pain 20 tablet 0 09/01/2022 Active Active Problems Problem Noted Date Diagnosed Date Primary osteoarthritis of both knees 08/17/2022 ANTHONY (acute kidney injury) 08/27/2020 Infection of prosthetic total hip joint 07/24/20 20 Hardware complicating wound infection 07/21/2020 Soft tissue abscess 04/10/2020 Soft tissue abscess 04/10/2020 Cellulitis and abscess of left lower extremity 0 01/02/2019 Postop check 01/02/2019 Avascular necrosis of bone of hip, left 10/20/19 19 Family History Medical History Relation Name Comments Clotting disorder Father Heart disease Father Diabetes Mother Cancer Sister Heart disease Sister Relation Name Status Comments Father WA dx age 53 Mother DM dx age 50 Sister WA age 82 Social History Tobacco Use Types Packs/Day Years Used Date Smoking Tobacco: Former Cigarettes 2 52 Q uit: 07/20/2007 Smokeless Tobacco: Never Alcohol Use Standard Drinks/Week Comments No 0 (1 standard drink = 0.6 oz pur e alcohol) quit 13 years ago Sex and Gender Information Value Date Recorded Sex Assigned at Female 07/22/2020 8:42 AM EST Gender Identity Not on file Sexual Orientation Not on file Job Start Date Occupation Industry Not on file Not on file Not on file Last Filed Vital Signs Vital Sign Reading Time Taken Comments Blood Pressure 102/62 10/01/2020 11:15 AM EST Pulse 78 10/01/2020 11:15 AM EST Temperature 36.4 ??C (97.6 ??F) 10/01/2020 11:[address] Respiratory Rate 18 09/08/2020 2:42 PM EST Oxygen Saturation 98% 10/01/2020 11:15 AM EST Inhaled Oxygen Concentration - - Weight 106.1 kg (234 lb) 08/17/2022 11:25 AM EST Height 162.6 cm (5' 4 ) 08/17/2022 11:25 AM EST Body Mass Index 40.17 08/17/2022 11:25 AM EST Plan of Treatment Health Maintenance Due Date Last Done Comments COVID-19 Vaccine (#1) 1939 Depression Screening 1951 BMI Counseling 1957 Preventative Health Evaluation 1957 DTap / Tdap / Td (1 - Tdap) 1958 Shingrix-Zoster Vaccine (1 of 2) 1989 Fall Risk Assessment 2004 Osteoporosis Screening (DEXA Scan) 2004 Pneumococcal Vaccine (1 of 1 - PCV) 2004 RSV Adult > 60+ Yrs or Pregn ant (1 - 1-dose 75+ series) 2014 Influenza Vaccine (#1) 2024 Hepatitis B Vaccines Aged Out No long er eligible based on patient's age to complete this topic RSV Ped < 20 months Aged Out No longe r eligible based on patient's age to complete this topic Medical Devices Implanted Type Area Director Clinical Applications Device Identifier Shelf Expiration Date Model / Serial / Lot Component Oss Diaphyseal Stacking Adapter - [id number] - [id number] Implanted:Qty: 1 on 07/24/2020 at [facility] Left: Hip [employer] [id number] 09/07/2027 [id number] / / [id number] Component Oss Diaphyseal 3 Cm W\Screws - [id number] - [id number] Implanted:Qty: 1 on 07/24/2020 at [facility] Left: Hip [employer] [id number] 11/07/2028 [id number] / / [id number] Component Oss Diaphyseal 3cm W\Screws - 859169 - [id number] Implanted:Qty: 1 on 07/24/2020 at [facility] Left: Hip [employer] [id number] 10/20/2027 183486 / / [id number] Screw Trilogy 25mm 6.5mm Self Tap Tivanium Bone Cortex Hip - 117305 - [id number] Implanted:Qty: 1 on 07/24/2020 at [facility] Left: Hip [employer] 03/25/2030 [id number] / / [id number] Screw Trilogy 40mm 6.5mm Self Tap Tivanium Bone Cortex Hip - 533895 - [id number] Implanted:Qty: 1 on 07/24/2020 at [facility] Left: Hip [employer] 04/29/2030 [id number] / / [id number] Plug Artisan Medium 25mm Plug Bone Cement - 779015 - [id number] Implanted:Qty: 1 on 07/24/2020 at [facility] Left: Hip [employer] [id number] 06/09/2025 6215-5-011 / / [id number] Liner G7 Rio G 36mm Constrain E1 Acetabular Hip - 938653 - [id number] Implanted:Qty: 1 on 07/24/2020 at [facility] Left: Hip [employer] 05/16/2024 [id number] / / [id number] Head Rio -3mm 36mm Modular Femoral Hip - 454171 - [id number] Implanted:Qty: 1 on 07/24/2020 at [facility] Left: Hip [employer] [id number] 07/09/2029 11-457926 / / [id number] Shell G7 G Offset Hemisphere 58mm Multihole Osseoti - 307754 - [id number] Implanted:Qty: 1 on 07/24/2020 at [facility] Left: Hip [employer] [id number] 02/25/2030 354465 / / [id number] Bone Void Filler Stimulan 10cc Rapid Cure - 687969 - [id number] Implanted:Qty: 1 on 07/24/2020 at [facility] Left: Hip [employer] [id number] 04/18/2023 620-010 / / [id number] Cement Simplex P Radiopaque Full Dose Bone 10 Pack - 070685 - [id number] Implanted:Qty: 1 on 07/24/2020 at [facility] Left: Hip [employer] [id number] 02/16/2022 6191-1-010 / / Cement Simplex P Radiopaque Full Dose Bone 10 Pack - 367219 - [id number] Implanted:Qty: 1 on 07/24/2020 at [facility] Left: Hip [employer] [id number] 02/16/2022 6191-1-010 / / Component Leonardo 7cm Femoral Left Proximal - 450643 - [id number] Implanted:Qty: 1 on 07/24/2020 at [facility] Left: Hip [employer] [id number] 02/16/2029 030275 / / [id number] Stem Oss 150mm 11mm Bowed Collared Femoral Intramedullary - 602740 - [id number] Implanted:Qty: 1 on 07/24/2020 at [facility] Left: Hip [employer] [id number] 08/30/2029 051736 / / [id number] Explanted Type Area Director Clinical Applications Device Identifier Shelf Expiration Date Model / Serial / Lot Shell, Insert Explanted:Qty: 1 on 07/24/2020 by Stefano Gerard MD at [facility] Left: Hip Screw Trilogy 25mm 6.5mm Self Tap Tivanium Bone Cortex Hip - 236077 - [id number] Explanted:Qty: 1 on 07/24/2020 at [facility] [employer] 04/18/2028 [id number] / / [id number] Femur With Stem & Head Explanted:Qty: 1 on 07/24/2020 by Stefano Gerard MD at [facility] Left: Hip Screws X2 Explanted:Qty: 1 on 07/24/2020 by Stefano Gerard MD at [facility] Left: Hip Advance Directives For more information, please contact: [phone] Documents on File Type Date Recorded Patient Engraver Apprentice Decorative Expl anation Advance Directive and Living Will 07/30/2020 10:22 PM Latest Code Status on File Code Status Date Activated Date Inactivated Comments Full Code 08/28/2020 1:21 AM 09/08/2020 9:14 PM Thi s code status was ascertained in the following way: patient Code Status History Code Status Date Activated Date Inactivated Comments Full Code 07/21/2020 9:53 PM 07/30/2020 12:39 AM Thi s code status was ascertained in the following way: discussed with patient. Care Teams Pit Laborer Relationship Specialty Start Date End Date Bere Delarosa MD [address] [phone] PCP - General Internal Medicine 08/05/22
[2025-01-14 16:23] LABS: Anion Gap 11 (12-20); Blood Urea Nitrogen 9 mg/dL (9-16); Calcium 8.8 mg/dL (8.4-10.2); Carbon Dioxide 33 mmol/L (22-29); Chloride 102 mmol/L (96-108); Estimated Glomerular Filt Rate > 60; Glucose Random 115 mg/dL (60-115); Potassium 3.8 mmol/L (3.3-5.1); Sodium 142 mmol/L (135-145)
== END 2025-01-14 12:31 | disposition home or self-care (01) ==
LOC: HO.HVNA 12:30
PROVIDERS: Visit Provider Internal Medicine
DX: G93.40 Encephalopathy, unspecified (principal); I11.0 Hypertensive heart disease with heart failure; J96.12 Chronic respiratory failure with hypercapnia
CPT/HCPCS: 36415; 80048